=== PATIENT | female | born 1980 | race Asian ===

== ENCOUNTER 2018-09-20 22:21 | Emergency (ER) | payer OTHER ==
[~2018-09-20] VITALS: Ht 167.6 cm; Wt 77.1 kg
[2018-09-20 22:29] VITALS: BP 153/97
--- NOTE | 2018-09-20 22:37 | NUR ---
PATIENT AMBULATED BACK TO ER LOBBY WITH STEADY GAIT, PATIENT GCS 15
--- NOTE | 2018-09-20 23:35 | NUR ---
PT TAKEN TO BED 12
[2018-09-20] MEDS ORDERED: KETOROLAC 30 MG/ML VIAL IM ONE (23:50)
--- NOTE | 2018-09-21 00:02 | NUR ---
38/F PRESENTS SELF TO ED, C/O 6/10 STABBING L EAR PAIN, X1 DAY. PT DENIES FEVER, N/V, COUGH. PT AOX4, GCS 15, SKIN NORMAL WARM DRY, RR EVEN AND UNLABORED. HX DM RX METFORMIN NONCOMPLIANT
[2018-09-21 00:24] VITALS: BP 137/89
--- NOTE | 2018-09-21 00:27 | NUR ---
Patient discharged with v/s stable. Written and verbal after care instructions given and explained. Patient alert, oriented and verbalized understanding of instructions. Ambulatory with steady gait. All questions addressed prior to discharge. ID band removed. Patient advised to follow up with PMD. Rx of OFLOXACIN, NAPROSYN, AMOXICILLIN, NORCO given. Patient educated on indication of medication including possible reaction and side effects. Opportunity to ask questions provided and answered.
== END 2018-09-21 00:27 | disposition home or self-care (01) ==
LOC: MED 22:21
DX: H66.92 Otitis media, unspecified, left ear (principal); E11.9 Type 2 diabetes mellitus without complications
CPT/HCPCS: 96372; 99283; J1885

== ENCOUNTER 2020-12-21 15:54 | Emergency (ER) | payer OTHER, SELFPAY ==
[~2020-12-21] VITALS: Ht 167.6 cm; Wt 80.7 kg
[2020-12-21 16:10] VITALS: BP 124/67
--- NOTE | 2020-12-21 16:13 | NUR ---
PT TO AWAIT IN TENT
--- NOTE | 2020-12-21 16:21 | NUR ---
LUCIA BURGER EXAMINING PT IN TENT
[2020-12-21] MEDS ORDERED: DEXT30SE7 PO (17:36)
[2020-12-21] MEDS ORDERED: CEPH-588 PO (17:36)
--- NOTE | 2020-12-21 17:59 | NUR ---
NOVEL SWAB COLLECTED AND SENT TO LAB.
--- NOTE | 2020-12-21 17:59 | NUR ---
Patient discharged with v/s stable. Written and verbal after care instructions given and explained. Patient alert, oriented and verbalized understanding of instructions. Ambulatory with steady gait. All questions addressed prior to discharge. ID band removed. Patient advised to follow up with PMD. Rx of CEPHALEXIN AND DELSYM given. Patient educated on indication of medication including possible reaction and side effects. Opportunity to ask questions provided and answered.
== END 2020-12-21 17:59 | disposition home or self-care (01) ==
LOC: MED 15:54
DX: O98.512 Other viral diseases complicating pregnancy, second trimester (principal); U07.1 COVID-19; E11.9 Type 2 diabetes mellitus without complications; Z3A.20 20 weeks gestation of pregnancy
CPT/HCPCS: 81002; 81025; 99283; U0003